=== PATIENT | female | born 1945 | race Caucasian/White ===

== ENCOUNTER 2023-10-25 11:10 | Inpatient (IN) | payer MEDICARE, OTHER ==
[2023-10-25] MEDS ORDERED: Acetaminophen 325 MG TAB PO PRN (11:24)
[2023-10-25] MEDS ORDERED: Dextrose 50% Abboject 50 ML SYRINGE SLOW IVP PRN (11:24)
[2023-10-25] MEDS ORDERED: Sodium Chloride 0.9% 1,000 ML IV PRN ×4 (11:24)
[2023-10-25] MEDS ORDERED: NS 0.9% w/ 20 MEQ KCL 1,000 ML IV PRN ×2 (11:24)
[2023-10-25] MEDS ORDERED: Ondansetron PF 4 MG/2 ML Vial IVP PRN (11:24)
[2023-10-25] MEDS ORDERED: Dextrose 5 %-0.45 % NaCl 1,000 ML IV PRN (11:24)
[2023-10-25] MEDS ORDERED: Electrolyte Replacement Protocol FS PRN (11:45)
[2023-10-25 12:19] LABS: Anion Gap 32 mmol/L (10-20); BUN (Urea Nitrogen) 33 mg/dL (9.8-20.1); Calc. Creatinine Clearance 0 mL/min (70-130); Calcium 9.4 mg/dL (7.8-10.44); Carbon Dioxide Less than 8 mmol/L (23-31); Chloride 108 mmol/L (98-107); Estimated GFR 42; Glucose 305 mg/dL (83-110); Potassium 4.6 mmol/L (3.5-5.1); Sodium 142 mmol/L (136-145)
[2023-10-25] MEDS: Electrolyte Replacement Protocol 1 EACH IVPB ONE (13:24)
[2023-10-25 17:43] VITALS: BMI 21.6
[2023-10-25 20:04] LABS: Anion Gap 20 mmol/L (10-20); BUN (Urea Nitrogen) 25 mg/dL (9.8-20.1); Calc. Creatinine Clearance 38 mL/min (70-130); Calcium 8.7 mg/dL (7.8-10.44); Carbon Dioxide 15 mmol/L (23-31); Chloride 113 mmol/L (98-107); Estimated GFR 50; Glucose 179 mg/dL (83-110); Potassium 4.2 mmol/L (3.5-5.1); Sodium 144 mmol/L (136-145)
[2023-10-25] MEDS: TICAGRELOR 90 MG TABLET PO SCH (20:32)
[2023-10-25] MEDS: Atorvastatin Calcium 40 MG TAB PO SCH (20:32)
[2023-10-25] MEDS: Famotidine/PF 20 mg/2ml Vial SLOW IVP SCH (20:32)
[2023-10-25] MEDS ORDERED: Non-Formulary Item 1 EACH (Atorvastatin Calcium [Atorvastatin Calcium] 80 MG Tablet) PO SCH (21:00)
[2023-10-25] MEDS: D5 1/2 NS w/20 mEq KCL 1,000 ML IV PRN (22:39)
[2023-10-25] MEDS: Insulin Reg, Human 100 UNITS in Sodium Chloride 0.9% 100 ML IVPB SCH (23:32)
[2023-10-26] MEDS: Levothyroxine Sodium 88 MCG TAB PO SCH (06:18)
[2023-10-26] MEDS: Enoxaparin 40 MG (0.4 mL) SYRINGE SC SCH (08:07)
[2023-10-26] MEDS: Aspirin 81 mg Enteric Coated Tablet PO SCH (08:07)
[2023-10-26] MEDS: Amlodipine 5 MG TAB PO SCH (08:07)
[2023-10-26 08:55] LABS: #Basophils Less than 0.03 10x3/uL (0.0-0.2); %Basophils 0.2 % (0.0-1.0); %Eosinophils 0.7 % (0.0-10.0); %Monocytes 8.9 % (0.0-10.0); %Neutrophils 74.7 % (42.0-75.0); Hematocrit 42.2 % (36.0-47.0); Hemoglobin 13.6 g/dL (12.0-16.0); Mean Corpuscular HGB CONC 32.2 g/dL (32.0-36.0); Mean Corpuscular Hemoglobin 32.5 pg (27.0-31.0); Mean Corpuscular Volume 100.7 fL (78.0-98.0); Mean Platelet Volume 9.9 fL (7.4-10.4); Platelet Count 199 10x3/uL (130-400); RBC Distribution Width 15.1 % (11.5-14.5); Red Blood Cell (RBC) Count 4.19 mill/uL (4.20-5.40)
[2023-10-26 09:08] LABS: Anion Gap 14 mmol/L (10-20); BUN (Urea Nitrogen) 12 mg/dL (9.8-20.1); Calc. Creatinine Clearance 51 mL/min (70-130); Calcium 7.9 mg/dL (7.8-10.44); Carbon Dioxide 16 mmol/L (23-31); Chloride 114 mmol/L (98-107); Estimated GFR 71; Glucose 211 mg/dL (83-110); Potassium 4.1 mmol/L (3.5-5.1); Sodium 140 mmol/L (136-145)
[2023-10-26 09:20] LABS: Hemoglobin A1c 7.9 % (4.0-6.0)
[2023-10-26] MEDS ORDERED: Dextrose 5% in Water 1,000 ML IV PRN (13:55)
[2023-10-26] MEDS ORDERED: HumaLOG 300 UNITS/3 ML VIAL SC PRN (13:55)
[2023-10-26] MEDS ORDERED: Dextrose 50% Abboject 50 ML SYRINGE SLOW IVP PRN (13:55)
[2023-10-26] MEDS ORDERED: Glucagon 1 MG/ML KIT IM PRN (13:55)
[2023-10-26 14:28] LABS: Anion Gap 15 mmol/L (10-20); BUN (Urea Nitrogen) 9 mg/dL (9.8-20.1); Calc. Creatinine Clearance 50 mL/min (70-130); Carbon Dioxide 13 mmol/L (23-31); Chloride 112 mmol/L (98-107); Estimated GFR 69; Glucose 374 mg/dL (83-110); Potassium 4.4 mmol/L (3.5-5.1); Sodium 136 mmol/L (136-145)
[2023-10-26] MEDS: Insulin Glargine 30 UNITS/0.3 ML VIAL SC SCH (15:07)
[2023-10-26] MEDS: Insulin Regular, Human 100 UNIT/ML 10 ML VIAL SC SCH (15:08)
[2023-10-26] MEDS: HumaLOG 300 UNITS/3 ML VIAL SC SCH (18:04)
[2023-10-26] MEDS: Lisinopril 20 MG TAB PO SCH (22:06)
[2023-10-27] MEDS: Lisinopril 20 MG TAB PO SCH (07:09)
[2023-10-27 07:10] VITALS: BP 229/88
[2023-10-27] MEDS: Bisoprolol Fumarate/HCTZ 10 mg/6.25 mg Tablet PO SCH (07:10)
[2023-10-27] MEDS ORDERED: Carvedilol 25 MG TAB PO SCH (08:00)
[2023-10-27] MEDS: Empagliflozin 10 MG TAB PO SCH (08:02)
[2023-10-27] MEDS: Insulin Glargine 30 UNITS/0.3 ML VIAL SC SCH (08:03)
[2023-10-27] MEDS: Amlodipine 5 MG TAB PO SCH (10:06)
[2023-10-27] MEDS ORDERED: Carvedilol 6.25 MG TAB PO SCH (17:00)
[2023-10-27 17:37] VITALS: TEMP 98.7
[2023-10-27] MEDS ORDERED: Lisinopril 20 MG TAB PO SCH (21:00)
[2023-10-28] MEDS ORDERED: Amlodipine 10 MG TAB PO SCH (09:00)
== END 2023-10-27 17:45 | disposition home or self-care (01) | DRG 638 ==
LOC: IMCU/EMU 11:10
PROVIDERS: ADMIT Internal Medicine; ATTEND Internal Medicine
DX: E11.10 Type 2 diabetes mellitus with ketoacidosis without coma (principal); N17.9 Acute kidney failure, unspecified; E11.65 Type 2 diabetes mellitus with hyperglycemia; E87.5 Hyperkalemia; I25.10 Atherosclerotic heart disease of native coronary artery without angina pectoris; Z66 Do not resuscitate; E03.9 Hypothyroidism, unspecified; I10 Essential (primary) hypertension; Z79.82 Long term (current) use of aspirin; Z79.4 Long term (current) use of insulin; Z79.899 Other long term (current) drug therapy; Z79.84 Long term (current) use of oral hypoglycemic drugs; Z82.49 Family history of ischemic heart disease and other diseases of the circulatory system; K86.89 Other specified diseases of pancreas
CPT/HCPCS: 36415; 36416; 74183; 80048; 83036; 85025; J1650; J1815; J3480; J3490; S0028

== ENCOUNTER 2023-10-28 08:48 | Inpatient (IN) | payer MEDICARE, OTHER ==
[2023-10-28] MEDS ORDERED: Calcium Carbonate 500 MG ChewTAB PO PRN (10:26)
[2023-10-28] MEDS ORDERED: Ondansetron PF 4 MG/2 ML Vial IVP PRN (10:26)
[2023-10-28] MEDS ORDERED: Senokot S 8.6-50 MG TAB PO PRN (10:26)
[2023-10-28] MEDS ORDERED: Glucagon 1 MG/ML KIT IM PRN (10:28)
[2023-10-28] MEDS ORDERED: Dextrose 5% in Water 1,000 ML IV PRN (10:28)
[2023-10-28] MEDS ORDERED: Dextrose 50% Abboject 50 ML SYRINGE SLOW IVP PRN (10:28)
[2023-10-28 10:30] VITALS: BMI 21.9
[2023-10-28] MEDS: HumaLOG 300 UNITS/3 ML VIAL SC PRN (11:18)
[2023-10-28] MEDS: Insulin Glargine 30 UNITS/0.3 ML VIAL SC SCH (11:18)
[2023-10-28 13:20] LABS: Troponin I 0.089 ng/mL (< 0.028)
[2023-10-28] MEDS: Amlodipine 10 MG TAB PO SCH (14:57)
[2023-10-28] MEDS: metFORMIN 500 MG TAB PO SCH (16:55)
[2023-10-28] MEDS: Acetaminophen 325 MG TAB PO PRN (16:57)
[2023-10-28] MEDS: hydrALAZINE 25 MG TAB PO SCH (18:04)
[2023-10-28 18:27] LABS: Troponin I 0.109 ng/mL (< 0.028)
[2023-10-28] MEDS ORDERED: Non-Formulary Item 1 EACH (Carvedilol [Carvedilol] 12.5 MG Tablet) PO SCH (21:00)
[2023-10-28] MEDS: Carvedilol 6.25 MG TAB PO SCH (21:08)
[2023-10-28] MEDS: TICAGRELOR 90 MG TABLET PO SCH (21:09)
[2023-10-28] MEDS: Atorvastatin Calcium 40 MG TAB PO SCH (21:09)
[2023-10-29 04:41] LABS: #Basophils Less than 0.03 10x3/uL (0.0-0.2); %Basophils 0.2 % (0.0-1.0); %Eosinophils 0.9 % (0.0-10.0); %Monocytes 15.6 % (0.0-10.0); %Neutrophils 67.7 % (42.0-75.0); Hematocrit 39.2 % (36.0-47.0); Hemoglobin 13.8 g/dL (12.0-16.0); Mean Corpuscular HGB CONC 35.2 g/dL (32.0-36.0); Mean Corpuscular Hemoglobin 34.5 pg (27.0-31.0); Mean Platelet Volume 9.8 fL (7.4-10.4); Platelet Count 199 10x3/uL (130-400); RBC Distribution Width 15.6 % (11.5-14.5)
[2023-10-29 05:06] LABS: ALT (SGPT) 19 U/L (8-55); AST (SGOT) 21 U/L (5-34); Albumin 2.7 g/dL (3.4-4.8); Alkaline Phosphatase 105 U/L (40-110); Anion Gap 15 mmol/L (10-20); BUN (Urea Nitrogen) 14 mg/dL (9.8-20.1); Bilirubin, Total 1.1 mg/dL (0.2-1.2); Calc. Creatinine Clearance 72 mL/min (70-130); Calcium 8.9 mg/dL (7.8-10.44); Carbon Dioxide 24 mmol/L (23-31); Chloride 102 mmol/L (98-107); Estimated GFR 91; Globulin 3.1 g/dL (2.4-3.5); Glucose 100 mg/dL (83-110); Potassium 3.1 mmol/L (3.5-5.1); Protein, Total 5.8 g/dL (5.8-8.1); Sodium 138 mmol/L (136-145)
[2023-10-29] MEDS: Levothyroxine Sodium 100 MCG TAB PO SCH (05:55)
[2023-10-29] MEDS: Aspirin 81 mg Enteric Coated Tablet PO SCH (08:59)
[2023-10-29] MEDS: Amlodipine 5 MG TAB PO SCH (08:59)
[2023-10-29] MEDS ORDERED: Amlodipine 5 MG TAB PO SCH (09:00)
[2023-10-29] MEDS ORDERED: [UNRECOGNIZED DRUG - OTHER] SQ SCH (09:00)
[2023-10-29] MEDS ORDERED: Non-Formulary Item 1 EACH (Enalapril Maleate [Enalapril Maleate] 20 MG Tablet) PO SCH (09:00)
[2023-10-29] MEDS: Empagliflozin 10 MG TAB PO SCH (09:00)
[2023-10-29] MEDS: Enoxaparin 40 MG (0.4 mL) SYRINGE SC SCH (09:00)
[2023-10-29] MEDS ORDERED: Non-Formulary Item 1 EACH (Dapagliflozin Propanediol [Farxiga] 10 MG Tablet) PO SCH (09:00)
[2023-10-29] MEDS ORDERED: INSULIN ASPART SC SCH (09:00)
[2023-10-29] MEDS: Bisoprolol Fumarate/HCTZ 10 mg/6.25 mg Tablet PO SCH (09:00)
[2023-10-29] MEDS ORDERED: INSULIN ASPART SQ SCH (09:00)
[2023-10-29] MEDS: Lisinopril 20 MG TAB PO SCH (09:02)
[2023-10-29] MEDS ORDERED: traMADol HCl 50 MG TAB PO PRN (16:22)
[2023-10-29] MEDS: HumaLOG 300 UNITS/3 ML VIAL SC PRN (20:37)
[2023-10-30 04:32] LABS: #Basophils 0.03 10x3/uL (0.0-0.2); %Basophils 0.3 % (0.0-1.0); %Lymphocytes 11.6 % (21.0-51.0); %Monocytes 13.8 % (0.0-10.0); %Neutrophils 72.7 % (42.0-75.0); Hematocrit 38.4 % (36.0-47.0); Hemoglobin 13.8 g/dL (12.0-16.0); Mean Corpuscular HGB CONC 35.9 g/dL (32.0-36.0); Mean Corpuscular Hemoglobin 34.8 pg (27.0-31.0); Mean Platelet Volume 10.3 fL (7.4-10.4); Platelet Count 192 10x3/uL (130-400); RBC Distribution Width 15.5 % (11.5-14.5); Red Blood Cell (RBC) Count 3.96 mill/uL (4.20-5.40)
[2023-10-30 04:55] LABS: Anion Gap 17 mmol/L (10-20); BUN (Urea Nitrogen) 15 mg/dL (9.8-20.1); Calc. Creatinine Clearance 71 mL/min (70-130); Calcium 8.6 mg/dL (7.8-10.44); Carbon Dioxide 22 mmol/L (23-31); Chloride 102 mmol/L (98-107); Estimated GFR 91; Glucose 138 mg/dL (83-110); Potassium 3.4 mmol/L (3.5-5.1); Sodium 138 mmol/L (136-145)
[2023-10-30] MEDS: Potassium Chloride 20 MEQ TAB PO SCH (20:24)
[2023-10-31 05:59] LABS: Anion Gap 17 mmol/L (10-20); BUN (Urea Nitrogen) 18 mg/dL (9.8-20.1); Calc. Creatinine Clearance 62 mL/min (70-130); Calcium 8.8 mg/dL (7.8-10.44); Carbon Dioxide 20 mmol/L (23-31); Chloride 103 mmol/L (98-107); Estimated GFR 88; Glucose 249 mg/dL (83-110); Potassium 4.5 mmol/L (3.5-5.1); Sodium 135 mmol/L (136-145)
[2023-10-31 19:49] VITALS: TEMP 98.2
[2023-10-31] MEDS: Insulin Glargine 30 UNITS/0.3 ML VIAL SC SCH (20:32)
[2023-11-01 08:13] VITALS: BP 143/66
== END 2023-11-01 15:01 | DRG 948 ==
LOC: 2SE 09:53 → OBSVTOIN 10-29 16:11 → T4-B 10-30 16:33
PROVIDERS: ADMIT Internal Medicine; ATTEND Family Medicine
DX: R53.81 Other malaise (principal); R79.89 Other specified abnormal findings of blood chemistry; I10 Essential (primary) hypertension; E03.9 Hypothyroidism, unspecified; I25.10 Atherosclerotic heart disease of native coronary artery without angina pectoris; E11.9 Type 2 diabetes mellitus without complications; S01.91XA Laceration without foreign body of unspecified part of head, initial encounter; W18.30XA Fall on same level, unspecified, initial encounter; Z66 Do not resuscitate; Z79.82 Long term (current) use of aspirin; Z79.899 Other long term (current) drug therapy; Z79.4 Long term (current) use of insulin; Z79.84 Long term (current) use of oral hypoglycemic drugs; R55 Syncope and collapse; R77.8 Other specified abnormalities of plasma proteins; E78.5 Hyperlipidemia, unspecified
CPT/HCPCS: 36415; 36416; 70450; 71260; 72125; 74177; 80048; 80053; 83735; 84484; 85025; 85610; 85730; 86301; 86304; 93005; 96372; 96374; G0378; J1650; J1815; J2270; Q9967